=== PATIENT | female | born 1980 | race Caucasian/White ===

== ENCOUNTER 2020-12-04 12:26 | Emergency (ER) | payer SELFPAY ==
[~2020-12-04] VITALS: Ht 170.2 cm; Wt 64.0 kg
[2020-12-04] MEDS ORDERED: CLINDAMYCIN 600MG PREMIX 50 ML IV ONE (12:45)
--- NOTE | 2020-12-04 12:54 | PHYS DOC ---
General Adult EDM: Chief Complaint: ABSCESS HPI: HPI: Patient is a 40 year old female who presents with left hip large egg sized abscess that is nonfluctuant and is hard. With associated cellulitis. It is not open or draining. She states is been there for the last 2 weeks. She denies fever, body aches, abdominal pain, nausea, vomiting, diarrhea, chest pain, shortness of air, dizziness, headache. Patient does have a history of hep C and meth and heroin use. She is also off of her bipolar medications. She is currently homeless but is staying in a safe place and has found another place to go to. States she would like help to get off of drugs. Rates her pain an aching and burning 8 out of 10. (BELKYS NAVARRO APRN) Review of Systems: Review of Systems: Constitutional: Denies fever or chills. [] Eyes: Denies change in visual acuity. [] HENT: Denies nasal congestion or sore throat. [] Respiratory: Denies cough or shortness of breath. [] Cardiovascular: Denies chest pain or edema. [] GI: Denies abdominal pain, nausea, vomiting, bloody stools or diarrhea. [] : Denies dysuria. [] Musculoskeletal: Denies back pain or joint pain. + Left hip pain [] Integument: Denies rash. + Left hip abscess with cellulitis [] Neurologic: Denies headache, focal weakness or sensory changes. [] Endocrine: Denies polyuria or polydipsia. [] Lymphatic: Denies swollen glands. [] Psychiatric: Denies depression or anxiety. [] (BELKYS NAVARRO MATERIALS CLERK) Heart Score: C/O Chest Pain: No Risk Factors: Risk Factors: DM, Current or recent (<one month) smoker, HTN, HLP, family history of CAD, obesity. Risk Scores: Score 0 - 3: 2.5% MACE over next 6 weeks - Discharge Home Score 4 - 6: 20.3% MACE over next 6 weeks - Admit for Clinical Observation Score 7 - 10: 72.7% MACE over next 6 weeks - Early Invasive Strategies (BELKYS NAVARRO APRN) Current Medications: Current Medications Medications (Trade) Dose Ordered Sig/Antione Start Time Stop Time Status Last Admin Dose Admin Clindamycin Phosphate 50 ml @ 100 mls/hr 1X ONCE 12/04/20 12:45 12/04/20 13:14 UNV (BELKYS NAVARRO APRN) Physical Exam: PE: Constitutional: Well developed, well nourished, no acute distress, non-toxic appearance. [] HENT: Normocephalic, atraumatic, bilateral external ears normal, oropharynx moist, no oral exudates, nose normal. [] Eyes: PERRLA, EOMI, conjunctiva normal, no discharge. [] Neck: Normal range of motion, no tenderness, supple, no stridor. [] Cardiovascular:Heart rate regular rhythm, no murmur [] Lungs & Thorax: Bilateral breath sounds clear to auscultation [] Abdomen: Bowel sounds normal, soft, no tenderness, no masses, no pulsatile masses. [] Skin: Warm, dry, left hip abscess with erythema, no rash. [] Back: No tenderness, no CVA tenderness. [] Extremities: No tenderness, no cyanosis, no clubbing, ROM intact, no edema. [] Neurologic: Alert and oriented X 3, normal motor function, normal sensory function, no focal deficits noted. [] Psychologic: Affect normal, judgement normal, mood normal. [] (BELKYS NAVARRO APRN) EKG: EKG: [] (BELKYS NAVARRO APRN) Radiology/Procedures: Radiology/Procedures: [] (BELKYS NAVARRO APRN) Course & Med Decision Making: Course & Med Decision Making Pertinent Labs and Imaging studies reviewed. (See chart for details) See HPI. Alert and oriented x4. Ambulatory with a steady gait. Speaks in full clear sentences. Vital signs within normal limits. Patient is started on clindamycin IV in the ED. blood work is unremarkable. She is afebrile. Lactic acid normal. Sudeep with PAT team has been in to speak with the patient about possible admission to a rehab facility. Patient states that she will take the resource information and make phone calls on her own. Sudeep did state that he checked into some places that she could be on Suboxone to help her with withdrawals but there are no beds. Patient states that she entered treatment for drugs back in August was clean for 10 days but then went back to using meth and heroin. [] (BAFUSBELKYS Disclaimer: Jackie Disclaimer: This electronic medical record was generated, in whole or in part, using a voice recognition dictation system. (BELKYS NAVARRO APRN) Departure Departure Impression: Primary Impression: Abscess or cellulitis of hip Disposition: HOME / SELF CARE / HOMELESS Condition: STABLE Referrals: NO PCP (PCP) Patient Instructions: Abscess, Cellulitis Additional Instructions: Take medication as prescribed and with food. Try a warm compress to the area. Take ibuprofen for any pain. Return in 48 hours for a wound recheck. You can also follow-up with a primary care provider. Scripts Clindamycin Hcl (CLINDAMYCIN HCL) 300 Mg Capsule 1 CAP PO TID, #30 CAP Prov: BELKYS NAVARRO APRN 12/04/20 Attending Signature I have participated in the care of this patient and I have reviewed and agree with all pertinent clinical information above including history, exam, and recommendations. (JACKI ALEGRIA DO) BELKYS NAVARRO APRN Dec 04, 2020 12:54 JACKI ALEGRIA DO Dec 04, 2020 15:32
[2020-12-04 13:12] LABS: BASO % 0 % (0-3); EOS % 1 % (0-3); HEMATOCRIT 35.3 % (36.0-47.0); HEMOGLOBIN 12.4 g/dL (12.0-15.5); LYMPH # 1.6 x10^3/uL (1.0-4.8); LYMPH % 25 % (24-48); MEAN CORPUSCULAR HEMOGLOBIN 32 pg (25-35); MEAN CORPUSCULAR HGB CONC 35 g/dL (31-37); MEAN CORPUSCULAR VOLUME 90 fL (79-100); MONO # 0.6 x10^3/uL (0.0-1.1); MONO % 9 % (0-9); NEUT # 4.2 x10^3/uL (1.8-7.7); NEUT % 66 % (31-73); PLATELET COUNT 330 x10^3/uL (140-400); RED BLOOD COUNT 3.91 x10^6/uL (3.50-5.40); RED CELL DISTRIBUTION WIDTH 12.7 % (11.5-14.5); WHITE BLOOD COUNT 6.4 x10^3/uL (4.0-11.0)
[2020-12-04 13:19] LABS: CALCIUM 8.6 mg/dL (8.5-10.1); CREATININE 0.8 mg/dL (0.6-1.0); GFR 80.3
[2020-12-04 13:25] LABS: ALBUMIN 3.3 g/dL (3.4-5.0); ALBUMIN/GLOBULIN RATIO 0.9 (1.0-1.7); TOTAL BILIRUBIN 0.3 mg/dL (0.2-1.0); TOTAL PROTEIN 6.8 g/dL (6.4-8.2)
[2020-12-04] MEDS ORDERED: DIPH,PERTUSS(ACELL),TET VAC/PF 0.5 ML SYRINGE. VAX IM ONE (13:30)
[2020-12-04 14:23] LABS: BILIRUBIN,URINE NEGATIVE (NEG); CLARITY,URINE CLEAR; COLOR,URINE YELLOW; NITRITE,URINE NEGATIVE (NEG); PH,URINE 6.5 (<5.0-8.0); PROTEIN,URINE NEGATIVE (NEG-TRACE)
[2020-12-04] MEDS ORDERED: CLIN300C9 PO (14:25)
[2020-12-04 14:31] LABS: BACTERIA,URINE MANY /HPF (0-FEW)
[2020-12-04 14:32] LABS: RBC,URINE OCC /HPF (0-2)
[2020-12-04 15:38] VITALS: BP 139/60
== END 2020-12-04 16:01 | disposition home or self-care (01) ==
LOC: ER 12:26
DX: L02.416 Cutaneous abscess of left lower limb (principal)
CPT/HCPCS: 36415; 80053; 81001; 81025; 83605; 85025; 87040; 87086; 90471; 90715; 96365; 99284; J3490